=== PATIENT | male | born 1955 | race Caucasian/White ===

== ENCOUNTER 2023-01-28 12:49 | Emergency (ER) | payer OTHER ==
[~2023-01-28] VITALS: Ht 190.5 cm; Wt 164.7 kg
[2023-01-28 12:57] VITALS: BP 101/68; PULSE 70; RESP 18; TEMP 98.1; O2SAT 95
[2023-01-28] MEDS ORDERED: BACITRACIN OINT 500 UNITS/GM PKT TP ONE (13:55)
[2023-01-28] MEDS ORDERED: BACI-418 TP (14:06)
== END 2023-01-28 14:26 | disposition home or self-care (01) ==
LOC: MED 12:49
DX: S91.115A Laceration without foreign body of left lesser toe(s) without damage to nail, initial encounter (principal); Z79.2 Long term (current) use of antibiotics; W22.8XXA Striking against or struck by other objects, initial encounter; Y92.89 Other specified places as the place of occurrence of the external cause; Y93.89 Activity, other specified; Y99.8 Other external cause status
CPT/HCPCS: 73630; 99283